=== PATIENT | male | born 2000 | race African-American/Black ===

== ENCOUNTER 2019-10-01 12:21 | Emergency (ER) | payer OTHER ==
[~2019-10-01] VITALS: Ht 162.6 cm; Wt 68.2 kg
[2019-10-01 12:28] VITALS: BP 149/75
== END 2019-10-01 13:00 | disposition left against medical advice (07) ==
LOC: EMS 12:21
DX: R10.9 Unspecified abdominal pain (principal); Z53.21 Procedure and treatment not carried out due to patient leaving prior to being seen by health care provider